=== PATIENT | female | born 1975 | race Caucasian/White ===

== ENCOUNTER → 2021-09-28 16:33 | Outpatient (BNVA) | payer OTHER, SELFPAY | PROVIDERS: Visit Provider Family Medicine | DX: G47.19 Other hypersomnia (principal); R06.81 Apnea, not elsewhere classified; R06.83 Snoring; R79.89 Other specified abnormal findings of blood chemistry; Z76.89 Persons encountering health services in other specified circumstances | CPT/HCPCS: 80053; 80061; 82652; 84439; 84443; 85025 ==